=== PATIENT | male | born 1995 | race Caucasian/White ===

== ENCOUNTER 2017-02-07 19:16 | Emergency (ER) | payer OTHER ==
[~2017-02-07] VITALS: Ht 165.1 cm; Wt 62.6 kg
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
--- NOTE | 2017-02-07 19:40 | NUR ---
AT BEDSIDE FOR EVAL
--- NOTE | 2017-02-07 20:00 | NUR ---
XRAY AT BEDSIDE
[2017-02-07 20:41] VITALS: BP 142/80
--- NOTE | 2017-02-07 20:41 | NUR ---
Patient discharged to home in stable condition. Written and verbal after care instructions given. Patient verbalizes understanding of instruction and rx. Pt ambulated out with a slow steady gait. vss. nad noted. resp even and unlabored.
== END 2017-02-07 20:42 | disposition home or self-care (01) ==
LOC: ER 19:19
DX: S20.211A Contusion of right front wall of thorax, initial encounter (principal); M54.6 Pain in thoracic spine; G89.29 Other chronic pain; F17.200 Nicotine dependence, unspecified, uncomplicated; V43.52XA Car driver injured in collision with other type car in traffic accident, initial encounter; Y93.89 Activity, other specified; Y92.89 Other specified places as the place of occurrence of the external cause; Y99.9 Unspecified external cause status
CPT/HCPCS: 71010-TC; A4606; Z7610